=== PATIENT | male | born 1995 | race African-American/Black ===

== ENCOUNTER 2017-09-18 08:09 | Emergency (ER) | payer SELFPAY ==
[2017-09-18 09:41] LABS: Bilirubin Negative (Negative); Blood, Urine Negative (Negative); Clarity CLEAR (Clear); Glucose, Urine (Dipstick) Negative (Negative); Leukocyte Small (Negative); Nitrite Negative (Negative); Protein, Urine (Dipstick) Negative (Neg-Trace); Specific Gravity, Urine 1.024 (1.002-1.036)
[2017-09-18 09:43] LABS: Bacteria/HPF None Seen HPF (None Seen); Hyaline Casts/LPF 0-3 HYALINE CAST LPF (0-3 Hyaline); RBC/HPF 0-3 HPF (0-3); Squamous Epithelial None Seen HPF (0-3)
[2017-09-18] MEDS ORDERED: Azithromycin 250 MG TAB ONE (11:05)
[2017-09-18] MEDS ORDERED: Lidocaine 1% PF 5 ML VIAL ONE (11:05)
[2017-09-18] MEDS ORDERED: cefTRIAXone\\ROCEPHIN 250 MG VIAL ONE (11:05)
--- NOTE | 2017-09-18 11:47 | ULT ---
SCROTAL SONOGRAM WITH DUPLEX EVALUATION: HISTORY: Scrotal pain. FINDINGS: Right testicle is 4.0 cm and the left is 4.5 cm. Each has a normal sonographic appearance and demons trates good color and spectral Doppler flow. Minimal bilateral pleural fluid. Small bilateral epidi dymal head cysts. IMPRESSION: No sonographic evidence of testicular mass or torsion. POS: [facility]
[2017-09-20 10:32] LABS: Chlamydia by PCR DETECTED (NotDetected); GC by PCR DETECTED (NotDetected)
== END 2017-09-18 11:32 | disposition home or self-care (01) ==
LOC: ERS 08:09
DX: N34.2 Other urethritis (principal); R36.9 Urethral discharge, unspecified
CPT/HCPCS: 76870; 81003; 81015; 87086; 87491; 87591; 93976; 96372; J0696; J2001